=== PATIENT | male | born 1995 | race African-American/Black ===

== ENCOUNTER 2023-10-27 22:40 | Emergency (ER) | payer SELFPAY ==
[~2023-10-27] VITALS: Ht 182.9 cm; Wt 86.4 kg
[2023-10-27 22:46] VITALS: BP 123/64; PULSE 64; RESP 16; TEMP 98.5
[2023-10-27] MEDS ORDERED: ACET-3385 PO (23:49)
[2023-10-27] MEDS ORDERED: AMOX1TAB16 PO (23:49)
[2023-10-27] MEDS ORDERED: IBUP-1492 PO (23:49)
[2023-10-28] MEDS: AMOX TR/POT CLAV 875 MG/125 MG TABLET PO ONE (00:02)
[2023-10-28] MEDS: IBUPROFEN 600 MG TABLET PO ONE (00:02)
[2023-10-28] MEDS: ACETAMINOPHEN 500 MG TABLET PO ONE (00:02)
== END 2023-10-28 00:30 | disposition home or self-care (01) ==
LOC: EMS 22:41
DX: K08.89 Other specified disorders of teeth and supporting structures (principal); F17.210 Nicotine dependence, cigarettes, uncomplicated; F12.90 Cannabis use, unspecified, uncomplicated; Z98.890 Other specified postprocedural states
CPT/HCPCS: 99284; Z7502; Z7610